=== PATIENT | female | born 1985 | race Two or more races ===

== ENCOUNTER 2024-02-10 23:06 | Emergency (ER) | payer MEDICAID, OTHER ==
[~2024-02-10] VITALS: Ht 157.5 cm; Wt 64.6 kg
[2024-02-11] MEDS ORDERED: OFL50TS OT (01:06)
--- NOTE | 2024-02-11 01:07 | ED.PDOC ---
Eye-HPI HPI Comments This is a 38-year-old male presents to the ED with left ear pain x1 day. Patient states he pushed a Q-tip in too far and had sudden onset of ear pain with bleeding. Does note muffled sound can hear but not as good as his right ear. Denies fever, chills, nausea, vomiting, vertigo or dizziness. Chief Complaint: Earache Time Seen by MD: 23:15 Reviewed Notes: Nurses Notes, Medications, Allergies Allergies: Coded Allergies: NO KNOWN ALLERGIES (Unverified , 02/10/24) Information Source: Patient Mode of Arrival: Ambulatory Past Medical History PAST MEDICAL HISTORY: Denies Surgical History: Denies all surgeries [employer] WORK[employer] History: No Pertinent [employer] History Family History Family History: Reviewed,noncontributory to illness Social History Smoker: Non-Smoker Alcohol: Denies ETOH Use Drugs: Denies Drug Use Constitutional: denies: chills, diaphoresis, fatigue, fever, malaise, sweats, weakness, others EENTM: reports: ear pain; denies: blurred vision, double vision, ear bleeding, ear discharge, ear drainage, ear ringing, eye pain, eye redness, hearing loss, mouth pain, mouth swelling, nasal discharge, nose bleeding, nose congestion, nose pain, photophobia, tearing, throat pain, throat swelling, voice changes, others Respiratory: denies: cough, hemoptysis, orthopnea, SOB at rest, shortness of breath, SOB with excertion, stridor, wheezing, others Cardiovascular: denies: chest pain, dizzy spells, diaphoresis, Dyspnea on exertion, edema, irregular heart beat, left arm pain, lightheadedness, palpitations, PND, syncope, others Gastrointestinal: denies: abdomen distended, abdominal pain, blood streaked bowels, constipated, diarrhea, dysphagia, difficulty swallowing, hematemesis, melena, nausea, poor appetite, poor fluid intake, rectal bleeding, rectal pain, vomiting, others Genitourinary: denies: abnormal vagina bleeding, burning, dyspareunia, dysuria, flank pain, frequency, hematuria, incontinence, pain, , vagina discharge, urgency, others Neurological: denies: dizziness, fainting, headache, left sided numbness, left sided weakness, numbness, paresthesia, pre-existing deficit, right sided numbness, right sided weakness, seizure, speech problems, tingling, tremors, weakness, others Musculoskeletal: denies: back pain, gout, joint pain, joint swelling, muscle pain, muscle stiffness, neck pain, others Integumetry: denies: bruises, change in color, change in hair/nails, dryness, laceration, lesions, lumps, rash, wounds, others Allergic/Immunocompromised: denies: Difficulty Healing, Frequent Infections, Hives, Itching, others Hematologic/Lymphatic: denies: anemia, blood clots, easy bleeding, easy bruising, swollen glands, others Endocrine: denies: excessive hunger, excessive sweating, excessive thirst, excessive urination, flushing, intolerance to cold, intolerance to heat, unexplained weight gain, unexplained weight loss, others Psychiatric: denies: anxiety, bipolar disorder, depression, hopeless, panic disorder, schizophrenia, sleepless, suicidal, others Physical Exam General Appearance: No Apparent Distress, Normal HEENT: Pharynx Normal, TM Abnormal (L) (Perforated eardrum with noted dried blood canal without edema or erythema) Neck: Full Range of Motion, Non-Tender Respiratory: Lungs Clear, No Accessory Muscle Use, No Respiratory Distress, Normal Breath Sounds Cardiovascular: No Murmur, Normal Peripheral Pulses, Regular Rate/Rhythm Breast Exam: Deferred Gastrointestinal: Non Tender, Soft Genitalia: Deferred Pelvic: Deferred Rectal: Deferred Extremities: Normal range of motion Musculoskeletal : Apperance: Normal Neurologic: Alert, painter ski edge II-XII nml as Tested, No Motor Deficits, Normal Affect, Normal Mood, No Sensory Deficits Cerebellar Function: Normal Reflexes: Normal Skin: Dry, Normal Color, Warm Lymphatic: No Adenopathy Was a procedure done? Was a procedure done?: No EENT DIFF Eye: N/A Ear: Cerumen Impaction, Otitis Media, Perforation X-Ray, Labs, Meds, VS Vital Signs Date Time Temp Pulse Resp B/P (MAP) Pulse Ox O2 Delivery O2 Flow Rate FiO2 02/10/24 23:24 98.1 79 16 133/81 (98) 99 X-Ray, Labs, Meds, VS Comment Left perforated TM we will start trial of ofloxacin drops; advised to avoid putting Q-tips in the left ear. Follow up with PCP in 2-3 days as necessary consider follow up for re-evaluation of the ear if symptoms persist. Advised to rest increase p.o. fluids with electrolytes. ER return precautions given. Time of 1ST Reevaluation: 01:02 Reevaluation 1ST: Improved Patient Education/Counseling: Diagnosis, Treatment, Prognosis, Need For Follow Up Family Education/Counseling: No Family Present Departure 1 Departure Time of Disposition: : Impression: Primary Impression: Perforated tympanic membrane Qualified Codes: H72.92 - Unspecified perforation of tympanic membrane, left ear Disposition: HOME / SELF CARE / HOMELESS Condition: Stable e-Prescriptions Ofloxacin (Otic) (FLOXIN OTIC) [address] 10 DROP OT BID for 14 Days, #7 ML Instill 10 drops into left ear twice daily times 14 days Prov: SVETLANA ALVAREZ 02/11/24 Discharged With: Self Critical Care Note Critical Care Time?: No Stability Stability form required: SVETLANA Badillo Feb 11, 2024 01:07
[2024-02-11 01:25] VITALS: BP 127/83; PULSE 82; RESP 16; TEMP 98.1; O2SAT 97
== END 2024-02-11 01:35 | disposition home or self-care (01) ==
LOC: ER 23:06
DX: H72.92 Unspecified perforation of tympanic membrane, left ear (principal)